=== PATIENT | male | born 1960 ===

== ENCOUNTER 2018-04-10 13:52 | Emergency (ER) | payer OTHER, SELFPAY ==
[2018-04-10 13:55] VITALS: BP 164/86; PULSE 72; RESP 16; TEMP 36.2; O2SAT 100
--- NOTE | 2018-04-10 14:36 | ED.MALEGU ---
HPI - Male Genitourinary General Chief complaint: Urogenital-Male Stated complaint: LARGE PROSTATE, UNABLE TO URINATE Time Seen by Provider: 04/10/18 14:00 Source: patient and family Mode of arrival: ambulatory Limitations: no limitations History of Present Illness HPI Narrative: Patient presents to the emergency department with his significant other and a chief complaint of an inability to urinate over the past day or 2. He denies any pain nor fever or chills. He has had no dysuria, frequency or urgency. He denies any history of the same. He has no back pain or recent injuries. He denies numbness, tingling or weakness of his lower extremities. He denies any new medications or herbal supplements MD Complaint: other Onset (ago): hour(s) Duration: constant Severity: moderate Relieving factors: none Exacerbating factors: none Related Data Home Medications Medication Instructions Recorded Confirmed fluticasone [Flonase Allergy 1 spray INTRANASAL DIRECTED 04/10/18 04/10/18 Relief] ibuprofen 1 dose PO PRN PRN 04/10/18 04/10/18 Allergies Allergy/AdvReac Type Severity Reaction Status Date / Time cetirizine [From Zte] AdvReac Severe severe Verified 04/10/18 14:22 reaction in combination with flonase per patient Review of Systems Review of Systems All systems reviewed & are unremarkable except as noted in HPI and below Constitutional Denies chills, Denies fever(s), Denies lethargy and Denies weakness Eyes Denies change in vision, Denies eye discharge, Denies irritation and Denies loss of vision ENT Ears, Nose, Mouth, and Throat: Denies change in voice, Denies neck pain and Denies sore throat Cardiovascular Denies chest pain, Denies irregular heart rhythm, Denies lightheadedness, Denies palpitations, Denies dyspnea, Denies dyspnea on exertion and Denies orthopnea Respiratory Denies cough, Denies dyspnea, Denies dyspnea on exertion and Denies wheezing Gastrointestinal Gastrointestinal: Denies abdominal pain, Denies change in bowel habits, Denies diarrhea, Denies nausea and Denies vomiting Genitourinary Denies hematuria, Reports difficulty urinating, Denies flank pain, Denies urinary incontinence and Denies urinary urgency Musculoskeletal Denies neck pain Integumentary/Breasts Denies pruritus, Denies erythema, Denies rash and Denies wounds Neurologic Denies confusion, Denies loss of vision and Denies weakness Psychiatric Denies anxiety, Denies confusion, Denies depression, Denies homicidal ideation and Denies suicidal ideation Endocrine Denies palpitations Hematologic/Lymphatic Denies easy bruising Allergic/Immunologic Denies wheezing [facility] Social History Smoking Status: Never smoker Exam Narrative Exam Narrative: GEN: AOx3 and in mild distress EYES: Pupils are equal, round, and reactive to light and accommodation. Extraoccular muscles are intact bilaterally. There is no subconjunctival hemorrhage or exudate. CHEST: Lungs are clear to auscultation bilaterally and free of wheezes, rales, or rhonchi. Heart rate is regular rhythm, there are no murmurs, clicks, rubs, or gallops. There is no chest wall tenderness. ABD: Abdomen is soft and tender with some fullness in his suprapubic region. There is no guarding or rebound. Bowel sounds are normal in all 4 quadrants. There is no mass or organomegaly. EXT: Full painless ROM of all extremities with no loss of sensation or strength. SKIN: Warm, pink, and dry. No erythema or rash Initial Vital Signs Initial Vital Signs: Vital Signs Temperature 97.2 F L 04/10/18 13:55 Pulse Rate 72 04/10/18 13:55 Respiratory Rate 16 04/10/18 13:55 Blood Pressure 164/86 H 04/10/18 13:55 Pulse Oximetry 100 04/10/18 13:55 Course Reevaluation(s) Reevaluation #1: Nursing did bladder scan noted over 500 mL of urine in the bladder. A Hamilton catheter was easily placed and patient had complete resolution of symptoms almost immediately Vital Signs - 8 hr 04/10/18 13:55 Temperature 97.2 F L Pulse Rate 72 Respiratory Rate 16 Blood Pressure 164/86 H Pulse Oximetry 100 MDM - Male Genitourinary MDM Narrative Medical decision making narrative: Patient denies any history of prior prostate troubles. He has had no dysuria, frequency or urgency. He denies any back pain or recent injury nor surgery. He denies any new medications. This is likely a consequence of an enlarged prostate as other common causes of urinary retention are absent. Patient is from [place] and would prefer to follow up down there. They have already made a call to a local urologist and plan to go there Discharge Plan Departure Patient Disposition: Home Clinical Impression: Acute urinary retention Instructions: DI for Urinary Retention in Men Activity Restrictions/Additional Instructions: *You have been diagnosed with [ acute urinary retention ] *What to do: * continue to take medications as directed *Follow up with urology in 2-3 days, call for an appointment. Let them know you were seen in the Emergency Department and that we ask that you be seen in follow up. You've already called urology in [place], however, if you have any troubles with that appointment I've attached the number to a local urologist *Return to ER if you should have any new, worsening or concerning symptoms, such as [bright red blood in the hamilton bag, increasing pain, fever over 101F, or other bothersome symptoms ] Prescriptions: No Action ibuprofen 200 mg Tablet 1 dose PO PRN PRN (Reason: Pain, Mild) RF: 0 fluticasone [Flonase Allergy Relief] 50 mcg/actuation [place],Suspension 1 spray Intranasal DIRECTED RF: 0 Referrals: Anaya Koo MD [Physician] -
[2018-04-10 15:13] LABS: Appearance Urine UA CLOUDY; Bacteria Urine None Seen; Bilirubin Urine UA NEGATIVE (NEGATIVE); Color Urine UA YELLOW; Glucose Urine UA NEGATIVE (Normal); Ketones Urine UA NEGATIVE (NEGATIVE); Leukocyte Esterase Urine UA NEGATIVE (NEGATIVE); Nitrite Urine UA Negative (Negative); Occult Blood Urine UA 3+ (Negative); Protein Urine UA TRACE (Negative); Urobilinogen Urine UA 0.2 E.U./dL (0.2); pH Urine UA 5.5 (4.5-8.0)
[2018-04-10 15:26] LABS: RBC Urine >100/HPF (0-5/HPF)
[2018-04-10 15:27] LABS: Culture Indicated Urine Cult Not Indicated; Squamous Epithelial Cell Urine 0-1 /HPF; WBC Urine 0-1/HPF (0-5/HPF)
== END 2018-04-10 15:21 | disposition home or self-care (01) ==
PROVIDERS: Emergency Provider Emergency Medicine
DX: R33.8 Other retention of urine (principal)
CPT/HCPCS: 51701; 51798; 81001; 99283